=== PATIENT | female | born 1965 | race Caucasian/White ===

== ENCOUNTER 2017-04-12 00:46 | Emergency (ER) | payer OTHER ==
--- NOTE | 2017-04-12 00:49 | C.PDOC ---
History Of Present Illness pt presents with severe left flank pain radiating towards the groin. No f/c. Some nausea , no vomiting. 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 Stats she has had passed a kidney stone in the past. Time Seen by Provider: 04/12/17 00:49 Chief Complaint (Nursing): Abdominal Pain History Per: Patient History/Exam Limitations: no limitations Onset/Duration Of Symptoms: Mins (20) Current Symptoms Are (Timing): Still Present Context: Other Severity: Severe Pain Scale Rating Of: 8 Location Of Pain/Discomfort: LUQ Radiation Of Pain To:: Back Quality Of Discomfort: Sharp, "Pain" Associated Symptoms: Nausea, Vomiting. denies: Fever, Chills Exacerbating Factors: None Alleviating Factors: None Last Bowel Movement: Yesterday Recent travel outside of the [place]: No Additional History Per: Family Past Medical History Reviewed: Historical Data, Nursing Documentation, Vital Signs Vital Signs: Last Vital Signs Temp 98.7 F 04/12/17 00:47 Pulse 69 04/12/17 00:47 Resp 20 04/12/17 00:47 BP 123/89 04/12/17 00:47 Pulse Ox 100 04/12/17 01:02 Family History: States: No Known Family Hx - Social History Hx Tobacco Use: No Hx Alcohol Use: No Hx Substance Use: No - Immunization History Hx Tetanus Toxoid Vaccination: No Hx Influenza Vaccination: No Hx Pneumococcal Vaccination: No Review Of Systems Constitutional: Negative for: Fever, Chills Eyes: Negative for: Redness ENT: Negative for: Throat Pain Cardiovascular: Negative for: Chest Pain Respiratory: Negative for: Shortness of Breath Gastrointestinal: Positive for: Nausea, Vomiting, Abdominal Pain Genitourinary: Negative for: Vaginal Bleeding Musculoskeletal: Negative for: Back Pain Skin: Negative for: Rash Neurological: Negative for: Weakness Psych: Positive for: Anxiety Physical Exam - Physical Exam Appears: Non-toxic Skin: Warm, Dry Head: Normacephalic Eye(s): bilateral: Normal Inspection Oral Mucosa: Moist Neck: Trachea Midline, Supple Chest: Symmetrical Cardiovascular: Rhythm Regular Respiratory: No Rales, No Rhonchi, No Wheezing Gastrointestinal/Abdominal: Soft, Tenderness (left flank), No Distention, No Guarding, No Rebound Back: CVA Tenderness (left ) Extremity: Normal ROM Extremity: Bilateral: Atraumatic, Normal Color And Temperature Pulses: Left Dorsalis Pedis: Normal, Right Dorsalis Pedis: Normal Neurological/Psych: Oriented x3, Normal Speech, Normal Cognition Gait: Steady ED Course And Treatment - Laboratory Results Result Diagrams: 04/12/17 01:02 04/12/17 01:02 O2 Sat by Pulse Oximetry: 100 Pulse Ox Interpretation: Normal Progress Note: blood work, ivf, morphine Disposition Counseled Patient/Family Regarding: Studies Performed, Diagnosis, Need For Followup, Rx Given - Disposition Referrals: David Tanner MD [Staff Provider] - Carolina Hutson MD [Staff Provider] - Disposition: HOME/ ROUTINE Disposition Time: 00:49 Condition: FAIR Additional Instructions: Please return if symptoms recur Prescriptions: Ketorolac Tromethamine [Toradol] 0 mg PO QID PRN #20 tab PRN Reason: Pain, Moderate (4-7) Ondansetron ODT [Zofran ODT] 1 odt PO TID #12 odt oxyCODONE/Acetaminophen [Percocet 5/325 mg Tab] 1 tab PO QID PRN #15 tab PRN Reason: Pain Tamsulosin [Flomax] 0.4 mg PO DAILY #14 cap Instructions: Renal Colic (ED), Kidney Stones (DC), Constipation (DC) Forms: Work Excuse - Clinical Impression Clinical Impression: Constipation, Renal colic on left side, Kidney stone on left side
[2017-04-12] MEDS ORDERED: Sodium Chloride 0.9% 2,000 ML IV ONE (00:52)
[2017-04-12] MEDS ORDERED: Sodium Chloride 0.9% 1,000 ML ONE (01:00)
[2017-04-12 01:16] LABS: BASO # 0.1 K/uL (0.0-0.2); BASO % 0.8 % (0.0-2.0); EOS # 0.2 K/uL (0.0-0.7); EOS % 1.8 % (0.0-4.0); INR 1.1; LYMPH # 4.4 K/uL (1.0-4.3); MEAN CELL VOLUME 84.9 fL (81.0-99.0); MEAN CORPUSCULAR HEMOGLOBIN 27.5 pg (27.0-31.0); MEAN CORPUSCULAR HGB CONC 32.5 g/dL (33.0-37.0); MEAN PLATELET VOLUME 8.1 fL (7.2-11.7); MONO # 0.8 K/uL (0.0-0.8); MONO % 8.3 % (0.0-10.0); NEUT # 3.9 K/uL (1.8-7.0); NEUT % 42.1 % (50.0-75.0); PROTHROMBIN TIME 11.8 SECONDS (9.7-12.2); RBC 4.7 Mil/uL (3.80-5.20); RED CELL DISTRIBUTION WIDTH 13.5 % (11.5-14.5); WHITE BLOOD COUNT 9.3 K/uL (4.8-10.8)
[2017-04-12 01:34] LABS: GFR AFRICAN-AMERICAN > 60; GFR NON-AFRICAN AMERICAN > 60
[2017-04-12 01:35] LABS: ALB/GLOB RATIO 1.2 (1.0-2.1); ALT/SGPT 42 U/L (9-52); AST/SGOT 31 U/L (14-36); BLOOD UREA NITROGEN 21 mg/dL (7-17); CALCIUM 8.6 mg/dl (8.6-10.4); LIPASE 265 U/L (23-300)
[2017-04-12 02:38] LABS: SQUAMOUS EPITHIAL < 1 /hpf (0-5); URINE BACTERIA RARE (<OCC); URINE BILIRUBIN NEGATIVE (NEGATIVE); URINE BLOOD 2+ (NEGATIVE); URINE CLARITY Clear (Clear); URINE COLOR Yellow (YELLOW); URINE GLUCOSE (UA) NORMAL (Normal); URINE LEUKOCYTE ESTERASE NEG Leu/uL (Negative); URINE NITRATE NEGATIVE (NEGATIVE); URINE PROTEIN NEGATIVE (NEGATIVE); URINE UROBILINOGEN NORMAL mg/dL (0.2-1.0)
[2017-04-12 04:54] VITALS: BP 114/78; PULSE 66; RESP 18; TEMP 97.8; O2SAT 98
--- NOTE | 2017-04-12 08:43 | CT ---
PROCEDURE: CT Abdomen and Pelvis without intravenous contrast HISTORY: Left flank pain. COMPARISON: None. TECHNIQUE: Multiple contiguous axial images were performed through the abdomen and pelvis without intravenous contrast. Subsequently, sagittal and coronal reformatted images were obtained. Radiation dose: Total exam DLP = 803 mGy-cm. This CT exam was performed using one or more of the following dose reduction techniques: Automated exposure control, adjustment of the mA and/or kV according to patient size, and/or use of iterative reconstruction technique. FINDINGS: LOWER THORAX: Unremarkable. LIVER: Fatty infiltration of the liver. GALLBLADDER AND BILE DUCTS: Prior cholecystectomy. PANCREAS: Unremarkable. No gross lesion or ductal dilatation. SPLEEN: Unremarkable. ADRENALS: Unremarkable. No mass. KIDNEYS AND URETERS: Mild hydronephrosis of the left kidney secondary to an obstructing 5 millimeter calculus in the proximal left ureter. VASCULATURE: Unremarkable. No aortic aneurysm. BOWEL: Moderate fecal retention the colon consistent with constipation. APPENDIX: Not well visualized. PERITONEUM: Unremarkable. No free fluid. No free air. LYMPH NODES: Unremarkable. No enlarged lymph nodes. BLADDER: Unremarkable. REPRODUCTIVE: Unremarkable. BONES: Degenerative changes in the spine. Small sclerotic density/focus in the anterior left femoral head measuring 1.1 centimeter of uncertain clinical etiology. Adjacent more well-defined subchondral cystic foci measuring 6 millimeters at the anterior aspect of the left proximal femur at the femoral head neck junction. Bone island in the left proximal femur. OTHER FINDINGS: Postsurgical changes and scarring in the anterior abdominal wall. Left inguinal hernia repair. IMPRESSION: Mild hydronephrosis of the left kidney secondary to an obstructing 5 millimeter calculus in the proximal left ureter. Moderate fecal retention the colon consistent with constipation. Additional findings as above. These findings were preliminarily reported at 4:08 a.m. on 04/12/[address] Kyle Lara from [employer].
[2017-04-12 09:09] LABS: HCG,QUALITATIVE URINE NEGATIVE (NEGATIVE)
== END 2017-04-12 04:53 | disposition home or self-care (01) ==
LOC: C.ER 00:46
DX: N13.2 Hydronephrosis with renal and ureteral calculous obstruction (principal); K59.00 Constipation, unspecified
CPT/HCPCS: 74176; 80053; 81001; 83690; 84702; 84703; 85025; 85610; 85730; 96361; 96374; 96375; 99284; J1885; J2270; J2405; J7040